=== PATIENT | female | born 1995 | race Caucasian/White ===

== ENCOUNTER 2016-09-13 06:30 | Inpatient (IN) | payer OTHER ==
[~2016-09-13] VITALS: Ht 162.6 cm; Wt 81.6 kg
[2016-09-13 07:12] VITALS: Ht 162.6 cm; Wt 81.6 kg
[2016-09-13] MEDS ORDERED: OXYTOCIN 15 UNITS/250 ML NS 250 ML IV SCH (07:25)
[2016-09-13] MEDS ORDERED: LIDOCAINE 1% 30 ML PF INFILTRATE ONE (07:25)
[2016-09-13] MEDS ORDERED: ALU/MAG/SIM 30 ML UDC PO PRN (07:25)
[2016-09-13] MEDS ORDERED: CEFAZOLIN (LD/OB) 100 ML IV PRN (07:25)
[2016-09-13] MEDS ORDERED: FAMOTIDINE 20 MG INJ IV PRN (07:25)
[2016-09-13] MEDS ORDERED: METOCLOPRAMIDE 10 MG/2 ML VIAL IV PUSH PRN (07:25)
[2016-09-13] MEDS ORDERED: TERBUTALINE 1 MG/ML VIAL SUBQ PRN (07:25)
[2016-09-13] MEDS ORDERED: MORPHINE 5 MG/1 ML VIAL IV PRN (07:25)
[2016-09-13] MEDS ORDERED: ACETAMINOPHEN 325 MG TAB PO PRN (07:25)
[2016-09-13] MEDS ORDERED: PROMETHAZINE 25 MG/ML VIAL IV PRN (07:25)
[2016-09-13] MEDS ORDERED: LIDOCAINE 1% BUFFERED 1 ML SYR INTRADERM PRN (07:25)
[2016-09-13] MEDS ORDERED: ONDANSETRON 4 MG VIAL IV PRN (07:25)
[2016-09-13] MEDS ORDERED: FAMOTIDINE 20 MG TAB PO PRN (07:25)
[2016-09-13] MEDS ORDERED: OXYTOCIN 15 UNITS/250 ML NS 15 UNITS in PART FILL PIGGYBACK 1 EA IV SCH (07:25)
[2016-09-13] MEDS: LACT RINGERS 1,000 ML IV SCH ×2 (07:30→13:19)
[2016-09-13] MEDS ORDERED: BUPIVACAINE 0.5% PF 10ML EPIDURAL ONE (10:11)
[2016-09-13] MEDS ORDERED: ROPIV/FENT 0.2%-2MCG/ML 100 ML EPIDURAL ONE (16:07)
[2016-09-13] MEDS ORDERED: FENTANYL 100 MCG/2 ML AMP ONE (16:07)
[2016-09-13] MEDS ORDERED: ROPIV/FENT 0.2%-2MCG/ML 100 ML EPIDURAL SCH (17:10)
[2016-09-13] MEDS ORDERED: SODIUM CHLORIDE 0.9% 500 ML IV PRN (17:10)
[2016-09-13] MEDS ORDERED: LACT RINGERS 500 ML IV PRN (17:10)
[2016-09-13] MEDS ORDERED: LACT RINGERS 500 ML IV ONE (17:10)
[2016-09-13] MEDS ORDERED: **ONLY ANESTEHSIA MAY ORDER OPIATES WHILE ON EPIDURAL XX SCH (20:00)
[2016-09-14] VITALS (12 sets, daily range): BP systolic 109–129; RESP 18–20; TEMP 97.3–98.8
[2016-09-14] MEDS: MISOPROSTOL 200 MCG TAB PO SCH ×2 (00:22→03:36)
[2016-09-14] MEDS ORDERED: ZOLPIDEM 5 MG TAB PO PRN (00:55)
[2016-09-14] MEDS ORDERED: MAG HYDROX 30 ML UDC PO PRN (00:55)
[2016-09-14] MEDS ORDERED: OXYTOCIN 15 UNITS/250 ML NS 250 ML IV ONE (00:55)
[2016-09-14] MEDS ORDERED: MEASLES,MUMPS,RUBELLA VAC SUBQ.VACC ONE (00:55)
[2016-09-14] MEDS ORDERED: TDaP 0.5 ML VIAL IM.VACC ONE (00:55)
[2016-09-14] MEDS ORDERED: DERMOPLAST SPRAY TOPICAL PRN (00:55)
[2016-09-14] MEDS ORDERED: ASTRINGENT MED PADS 40'S TOPICAL PRN (00:55)
[2016-09-14] MEDS ORDERED: MISOPROSTOL 100 MCG TAB ONE (04:45)
[2016-09-14] MEDS: Ibuprofen 600 MG TAB PO SCH ×4 (06:21→23:08)
[2016-09-14] MEDS: DOCUSATE SOD 100 MG CAP PO SCH (12:06)
[2016-09-15 05:33] VITALS: BP_SYST 128; RESP 14; TEMP 97.9
[2016-09-15] MEDS: Ibuprofen 600 MG TAB PO SCH ×3 (05:33→17:53)
[2016-09-15] MEDS: DOCUSATE SOD 100 MG CAP PO SCH (08:51)
[2016-09-15 10:34] VITALS: BP_SYST 102; RESP 14; TEMP 98.6
[2016-09-15 17:48] VITALS: BP_SYST 130; RESP 18; TEMP 98
[2016-09-15 21:52] VITALS: BP_SYST 129; RESP 18; TEMP 98.1
[2016-09-16] MEDS: Ibuprofen 600 MG TAB PO SCH ×3 (00:20→12:03)
[2016-09-16 05:35] VITALS: BP_SYST 104; RESP 16; TEMP 97.5
[2016-09-16] MEDS: DOCUSATE SOD 100 MG CAP PO SCH (08:52)
[2016-09-16] MEDS ORDERED: TDaP 0.5 ML VIAL IM.VACC ONE (12:01)
[2016-09-16 12:07] VITALS: BP_SYST 104; RESP 16; TEMP 97.5
== END 2016-09-16 15:35 | disposition home or self-care (01) | DRG 775 ==
LOC: LD 06:38 → OB 09-14 04:01
PROVIDERS: ADMIT Obstetrics & Gynecology Reproductive Endocrinology; ATTEND Obstetrics & Gynecology Reproductive Endocrinology
PROC: 10907ZC Drainage of Amniotic Fluid, Therapeutic from Products of Conception, Via Natural or Artificial Opening (ICD-10-PCS; 2016-09-13)
PROC: 3E033VJ Introduction of Other Hormone into Peripheral Vein, Percutaneous Approach (ICD-10-PCS; 2016-09-13)
PROC: 10E0XZZ Delivery of Products of Conception, External Approach (ICD-10-PCS; principal; 2016-09-14)
PROC: 0W8NXZZ Division of Female Perineum, External Approach (ICD-10-PCS; 2016-09-14)
DX: O36.63X0 Maternal care for excessive fetal growth, third trimester, not applicable or unspecified (principal); Z37.0 Single live birth; Z3A.39 39 weeks gestation of pregnancy
CPT/HCPCS: 82803; 85025; 96372